=== PATIENT | female | born 1965 | race African-American/Black ===

== ENCOUNTER 2016-10-07 12:08 | Emergency (ER) | payer OTHER ==
[~2016-10-07] VITALS: Ht 160 cm; Wt 80.1 kg
[2016-10-07 13:29] LABS: HEMATOCRIT 36.1 % (36.0-46.0); MCH 24.6 PG (29.0-34.0); MCHC 31.9 G/DL (30.0-36.0); MCV 77.1 FL (83-99); MEAN PLAT.VOLUME 11.5 uM^3 (9.5-12.4); PLATELET COUNT 294 K/uL (156-360); RBC DIS.WIDTH-CV 17.2 % (11.8-14.6); RED BLOOD COUNT 4.68 M/uL (3.80-5.20)
[2016-10-07 13:42] LABS: ADD MIUA? NO; BILIRUBIN NEGATIVE; BLOOD NEGATIVE; COLOR YELLOW ((YELLOW)); GLUCOSE (STRIP) NEGATIVE; KETONES NEGATIVE; LEUKOCYTES NEGATIVE; NITRITE NEGATIVE; PROTEIN (STRIP) NEGATIVE; SPECIFIC GRAVITY 1.015 (1.000-1.030); UCUL ADDED? NO; UROBILINOGEN 0.2 MG/DL (0.2-1.0)
[2016-10-07 13:43] LABS: CHLORIDE 103 mEq/L (99-109); POTASSIUM 3.4 mEq/L (3.7-5.4); SODIUM 141 mEq/L (136-147)
[2016-10-07 13:45] LABS: GLUCOSE 72 mg/dL (70-99)
[2016-10-07 13:46] LABS: ANION GAP 9 MEQ/L (2-14)
[2016-10-07 13:50] LABS: UREA NITROGEN (BUN) 14 mg/dL (9-23)
[2016-10-07 13:53] LABS: GFR ESTIMATE (CALCULATED) > 59 mL/min/
[2016-10-07 17:42] VITALS: BP 150/84
[2016-10-07] MEDS ORDERED: ANTIVERT25 MG PO (17:51)
== END 2016-10-07 17:42 | disposition left against medical advice (07) ==
LOC: EME 12:08
DX: R42 Dizziness and giddiness (principal); R55 Syncope and collapse; I10 Essential (primary) hypertension; J45.909 Unspecified asthma, uncomplicated; E11.9 Type 2 diabetes mellitus without complications; K21.9 Gastro-esophageal reflux disease without esophagitis; F17.200 Nicotine dependence, unspecified, uncomplicated
CPT/HCPCS: 70450; 71020; 80048; 81003; 85027; 93005; 99281; 99284

== ENCOUNTER 2017-04-03 10:07 | Emergency (ER) | payer OTHER ==
[~2017-04-03] VITALS: Ht 160 cm; Wt 82.4 kg
[~2017-04-03 10:07] MED LIST: ANTIVERT25 MG PO
[2017-04-03] MEDS ORDERED: THEO-DUR,THEOC300 MG PO (10:42)
[2017-04-03] MEDS ORDERED: OMEPRAZOLE20 MG PO (10:43)
[2017-04-03] MEDS ORDERED: COZAAR100 MG PO (10:44)
[2017-04-03] MEDS ORDERED: AMLODIPINE BESY10 MG PO (10:45)
[2017-04-03] MEDS ORDERED: METFORMIN HCL500 M4 PO (10:45)
[2017-04-03] MEDS ORDERED: NEXIUM40 MG PO (10:46)
[2017-04-03] MEDS ORDERED: ZOFRAN ODT4 MG PO (12:35)
[2017-04-03] MEDS ORDERED: TESSALON PERLE100 MG PO (12:41)
[2017-04-03 12:54] VITALS: BP 123/63
== END 2017-04-03 12:55 | disposition home or self-care (01) ==
LOC: EME 10:07
DX: B34.9 Viral infection, unspecified (principal); J20.9 Acute bronchitis, unspecified; J45.909 Unspecified asthma, uncomplicated; F17.200 Nicotine dependence, unspecified, uncomplicated; E11.9 Type 2 diabetes mellitus without complications; I10 Essential (primary) hypertension; K21.9 Gastro-esophageal reflux disease without esophagitis; Z88.0 Allergy status to penicillin
CPT/HCPCS: 71046; 99281; 99284

== ENCOUNTER 2017-04-28 08:23 | Emergency (ER) | payer OTHER ==
[~2017-04-28] VITALS: Ht 160 cm; Wt 81.2 kg
[~2017-04-28 08:23] MED LIST changes: +AMLODIPINE BESY10 MG PO; +COZAAR100 MG PO; +METFORMIN HCL500 M4 PO; +NEXIUM40 MG PO; +OMEPRAZOLE20 MG PO; +TESSALON PERLE100 MG PO; +THEO-DUR,THEOC300 MG PO; +ZOFRAN ODT4 MG PO
[2017-04-28 08:51] LABS: BASOPHIL (%) 0.3 % (0-1); EOSINOPHIL (%) 0 % (0-5); IMMATURE GRANULOCYTE (%) 0.4 % (0.0-0.7); LYMPHOCYTE (%) 8.6 % (15-42); LYMPHOCYTE COUNT 1.1 K/uL (1.0-2.8); MCH 24.7 PG (29.0-34.0); MCHC 32.4 G/DL (30.0-36.0); MCV 76.3 FL (83-99); MONOCYTE (%) 2.5 % (3-12); MONOCYTE COUNT 0.3 K/uL (0-0.8); NEUTROPHIL (%) 88.2 % (45-76); NEUTROPHIL COUNT 11.1 K/uL (1.8-6.4); PLATELET COUNT 368 K/uL (156-360); RBC DIS.WIDTH-CV 17.6 % (11.8-14.6); RBC DIS.WIDTH-SD 47.8 % (39-53); RED BLOOD COUNT 4.85 M/uL (3.80-5.20); WHITE BLOOD COUNT 12.6 K/uL (4.1-10.2)
[2017-04-28 09:04] LABS: CHLORIDE 105 mEq/L (99-109); POTASSIUM 3.3 mEq/L (3.7-5.4); SODIUM 143 mEq/L (136-147)
[2017-04-28 09:06] LABS: GLUCOSE 111 mg/dL (70-99)
[2017-04-28 09:10] LABS: GFR ESTIMATE (CALCULATED) > 59 mL/min/; UREA NITROGEN (BUN) 9 mg/dL (9-23)
[2017-04-28] MEDS ORDERED: LEVAQUIN500 MG PO (10:44)
[2017-04-28] MEDS ORDERED: PHENERGAN-CODE120 ML PO (11:20)
[2017-04-28 11:22] VITALS: BP 187/92
== END 2017-04-28 11:24 | disposition home or self-care (01) ==
LOC: EME 08:23
PROVIDERS: Emergency Medicine
DX: J20.9 Acute bronchitis, unspecified (principal); J45.909 Unspecified asthma, uncomplicated; R19.7 Diarrhea, unspecified; I10 Essential (primary) hypertension; E11.9 Type 2 diabetes mellitus without complications; Z79.84 Long term (current) use of oral hypoglycemic drugs; Z88.0 Allergy status to penicillin; Z72.0 Tobacco use
CPT/HCPCS: 71046; 80048; 85025; 94640; 99281; 99284

== ENCOUNTER 2017-05-09 01:47 | Emergency (ER) | payer OTHER ==
[~2017-05-09] VITALS: Ht 160 cm; Wt 79.1 kg
[~2017-05-09 01:47] MED LIST changes: +LEVAQUIN500 MG PO; +PHENERGAN-CODE120 ML PO
[2017-05-09 02:28] LABS: HEMATOCRIT 34.8 % (36.0-46.0); HEMOGLOBIN 11.3 G/DL (11.9-15.5); MCHC 32.5 G/DL (30.0-36.0); PLATELET COUNT 289 K/uL (156-360); RBC DIS.WIDTH-CV 18.6 % (11.8-14.6); RBC DIS.WIDTH-SD 51.5 % (39-53); RED BLOOD COUNT 4.52 M/uL (3.80-5.20); WHITE BLOOD COUNT 13.4 K/uL (4.1-10.2)
[2017-05-09 02:38] LABS: APPEARANCE CLEAR ((CLEAR)); BILIRUBIN NEGATIVE; BLOOD NEGATIVE; COLOR STRAW ((YELLOW)); GLUCOSE (STRIP) NEGATIVE; KETONES NEGATIVE; LEUKOCYTES NEGATIVE; NITRITE NEGATIVE; PROTEIN (STRIP) NEGATIVE; SPECIFIC GRAVITY 1.011 (1.000-1.030); UCUL ADDED? NO; UROBILINOGEN 0.2 MG/DL (0.2-1.0)
[2017-05-09 03:03] LABS: ALBUMIN 3.8 G/DL (3.2-4.8); ALKALINE PHOSPHATASE 64 IU/L (3-129); ALT (GPT) 9 IU/L (3-49); AST (GOT) 11 IU/L (2-34); CHLORIDE 100 MEQ/L (99-109); GFR ESTIMATE (CALCULATED) > 59 mL/min/; GLUCOSE 99 mg/dL (70-99); POTASSIUM 3.5 MEQ/L (3.7-5.4); SODIUM 145 MEQ/L (136-147); TOTAL BILIRUBIN 0.4 MG/DL (0.0-1.0); TOTAL PROTEIN 6.7 G/DL (6.4-8.3); UREA NITROGEN (BUN) 13 mg/dL (9-23)
[2017-05-09 03:30] LABS: TROP-I INTERPRETATION NEGATIVE; TROPONIN-I < 0.01 ng/mL (0.0-0.30)
[2017-05-09 03:43] LABS: LIPASE 52 U/L (1.0-51.0)
[2017-05-09] MEDS ORDERED: PERCOCET 5/31 TABLET PO (05:03)
[2017-05-09] MEDS ORDERED: ZOFRAN ODT4 MG PO (05:03)
[2017-05-09 05:40] VITALS: BP 172/117
== END 2017-05-09 05:43 | disposition home or self-care (01) ==
LOC: EME 01:47
DX: R10.13 Epigastric pain (principal); K80.20 Calculus of gallbladder without cholecystitis without obstruction; J98.01 Acute bronchospasm; J06.9 Acute upper respiratory infection, unspecified; R11.2 Nausea with vomiting, unspecified; K57.30 Diverticulosis of large intestine without perforation or abscess without bleeding; K43.9 Ventral hernia without obstruction or gangrene; I51.7 Cardiomegaly; I25.10 Atherosclerotic heart disease of native coronary artery without angina pectoris; I10 Essential (primary) hypertension; E11.9 Type 2 diabetes mellitus without complications; Z87.891 Personal history of nicotine dependence; Z79.84 Long term (current) use of oral hypoglycemic drugs; Z90.710 Acquired absence of both cervix and uterus
CPT/HCPCS: 71046; 71275; 74174; 80053; 81003; 83690; 84484; 84702; 85027; 93005; 94640; 94640 76; 99281; 99285; J2270; J2405